=== PATIENT | female | born 1990 | race Caucasian/White ===

== ENCOUNTER 2018-01-23 15:41 | Inpatient (IN) | payer OTHER ==
[~2018-01-23] VITALS: Ht 162.6 cm; Wt 128.8 kg
[2018-01-23] MEDS ORDERED: ONDANSETRON HCL INJ 2 MG/ML VIAL IV STA (16:17)
[2018-01-23] MEDS ORDERED: HYDROMORPHONE 1MG/1ML INJ IV STA (16:17)
[2018-01-23] MEDS ORDERED: MORPHINE SULFATE 2 MG/ML SYR IV STA (16:25)
[2018-01-23] MEDS ORDERED: SODIUM CHLORIDE 0.9% 1000ML 1,000 ML IV ONE (16:30)
[2018-01-23] MEDS ORDERED: MORPHINE SULFATE INJ 4 MG/ML INJ IV STA (17:38)
--- NOTE | 2018-01-23 17:38 | Diagnostic Imaging Report ---
EXAMINATION: CT of the abdomen and pelvis with contrast. TECHNIQUE: Spiral CT images of the abdomen and pelvis were performed from the lung bases to the lesser trochanters after the intravenous administration of 100 cc of Isovue 370 and the oral administration of water. Coronal and sagittal reformatted images were obtained. COMPARISON: None. CLINICAL HISTORY:Gallbladder pain, vomiting, right upper quadrant pain for one week DISCUSSION: ABDOMEN/PELVIS: Exam limited by photon starvation from patient's body habitus. LOWER THORAX:Unremarkable. HEPATOBILIARY: No focal hepatic lesions. No intra or extrahepatic biliary ductal dilation. GALLBLADDER: Partially calcified 2.9 cm stone in the gallbladder lumen. No wall thickening or pericholecystic fluid. SPLEEN: No splenomegaly. PANCREAS: No focal masses or ductal dilatation. ADRENALS: No adrenal nodules. KIDNEYS/URETERS: No hydronephrosis, stones, or solid mass lesions. PELVIC ORGANS/BLADDER: Bladder is unremarkable. Uterus is unremarkable. No adnexal masses. PERITONEUM/RETROPERITONEUM: No free air or fluid. LYMPH NODES: No intra-abdominal, retroperitoneal, pelvic or inguinal lymphadenopathy. VESSELS: The celiac trunk,superior and inferior mesenteric and bilateral renal arteries are patent The portal, superior mesenteric and splenic veins are patent. GI TRACT: No bowel dilation or evidence of obstruction. Appendix is well identified and normal in caliber. No pericolonic inflammatory changes. BONES AND SOFT TISSUE: No aggressive lytic lesions. Soft tissues are grossly unremarkable. IMPRESSION: 1. Cholelithiasis, without CT evidence of cholecystitis. 2. Otherwise, unremarkable exam. Signed by: Dr. Rainer Dunbar M.D. on 01/23/2018 5:34 PM
[2018-01-23] MEDS ORDERED: CEFOXITIN SOD 1 GM VIAL ONE (17:41)
[2018-01-23] MEDS ORDERED: LORAZEPAM INJ 2 MG/ML VIAL IV STA (17:43)
[2018-01-23] MEDS ORDERED: LABETALOL HCL 5 MG/ML 20ML VIAL IV STA ×3 (18:13→18:59)
[2018-01-23] MEDS ORDERED: HYDROMORPHONE 1MG/1ML INJ IV PRN (18:15)
[2018-01-23] MEDS: D5.45%NS/KCL 20MEQ 1,000 ML IV SCH (18:23)
[2018-01-23] MEDS: LEVOFLOXACIN 500MG/D5W 100ML IV SCH (18:59)
--- OUTSIDE RECORDS SUMMARY | 2018-01-23 19:01 | XMS REPORT ---
Author [facility] Address Unknown Phone Unavailable Care Team Providers Care Inspector Casing Name Role Phone FELICIA WELLER Unavailable Unavailable Problems This patient has no known problems. Allergies, Adverse Reactions, Alerts This patient has no known allergies or adverse reactions. Medications This patient has no known medications. Results Test Description Test Time Test Comments Text Results Atomic Results Result Comments CT ABD/PEL WITH CONTRAST-HOPD 2018-01-23 17:30:00 [place] [id number] Patient Name: RAJANI CHAVES MR #: [id number] : 1990 Age/Sex: 27/F Req #: [id number] Adm Physician: Ordered by: FELICIA WELLER MD Report #: [id number] Location: [facility] Room/Bed: Procedure: [id number] HOPD/CT ABD/PEL WITH CONTRAST-HOPD Exam Date: 01/23/18 Exam Time: 1714 REPORT STATUS: Signed EXAMINATION: CT of the abdomen and pelvis with contrast. TECHNIQUE: Spiral CT images of the abdomen and pelvis were performed from the lung bases to the lesser trochanters after the intravenous administration of 100 cc of Isovue 370 and the oral administration of water. Coronal and sagittal reformatted images were obtained. COMPARISON: None. CLINICAL HISTORY:Gallbladder pain, vomiting, right upper quadrant pain for one week DISCUSSION: ABDOMEN/PELVIS: Exam limited by photon starvation from patient's body habitus. LOWER THORAX:Unremarkable. HEPATOBILIARY: No focal hepatic lesions. No intra or extrahepatic biliary ductal dilation. GALLBLADDER: Partially calcified 2.9 cm stone in the gallbladder lumen. No wall thickening or pericholecystic fluid. SPLEEN: No splenomegaly. PANCREAS: No focal masses or ductal dilatation. ADRENALS: No adrenal nodules. KIDNEYS/URETERS: No hydronephrosis, stones, or solid mass lesions. PELVIC ORGANS/BLADDER: Bladder is unremarkable. Uterus is unremarkable. No adnexal masses. PERITONEUM/RETROPERITONEUM: No free air or fluid. LYMPH NODES: No intra- abdominal, retroperitoneal, pelvic or inguinal lymphadenopathy. VESSELS: The celiac trunk,superior and inferior mesenteric and bilateral renal arteries are patent The portal, superior mesenteric and splenic veins are patent. GI TRACT: No bowel dilation or evidence of obstruction. Appendix is well identified and normal in caliber. No pericolonic inflammatory changes. BONES AND SOFT TISSUE: No aggressive lytic lesions. Soft tissues are grossly unremarkable. IMPRESSION: 1. Cholelithiasis, without CT evidence of cholecystitis. 2. Otherwise, unremarkable exam. Signed by: Dr. Ben Dunbar M.D. on 01/23/2018 5:34 PM Dictated By: BEN DUNBAR MD 1730 Transcribed By: KWAN on 01/23/181733 COPY TO: FELICIA WELLER MD
[2018-01-23 20:00] VITALS: BP 171/93
[2018-01-23 21:00] VITALS: BP 171/93
[2018-01-23] MEDS: ONDANSETRON HCL INJ 2 MG/ML VIAL IV PRN (22:52)
[2018-01-23] MEDS: HYDROMORPHONE 2MG/ML 2 MG/ML ML IV PRN (22:52)
[2018-01-24] VITALS (7 sets, daily range): BP systolic 148–169; BP diastolic 77–102
[2018-01-24] MEDS: D5.45%NS/KCL 20MEQ 1,000 ML IV SCH ×2 (02:05→10:14)
[2018-01-24 05:34] LABS: BASOPHILS % 0.3 % (0.0-1.0); EOSINOPHILS % 0.3 % (0.0-6.0); HEMATOCRIT 38.5 % (34.2-44.1); LYMPHOCYTES # (AUTO) 1.6 (1.0-3.2); LYMPHOCYTES % 13.3 % (18.0-39.1); MEAN CORPUSCULAR HEMOGLOBIN 28.7 pg (28-32); MEAN CORPUSCULAR HGB CONC 33.8 g/dL (31-35); MONOCYTES # (AUTO) 0.6 (0.2-0.8); MONOCYTES % 5.4 % (4.4-11.3); NEUTROPHILS # (AUTO) 9.3 (2.1-6.9); NEUTROPHILS % 80.3 % (38.7-80.0); PLATELET COUNT 268 x10e3/uL (140-360); RED BLOOD COUNT 4.53 x10e6/uL (3.6-5.1); RED CELL DISTRIBUTION WIDTH 12.7 % (11.7-14.4)
[2018-01-24] MEDS: METRONIDAZOLE 500MG/NS 100ML IV SCH ×4 (05:52→17:03)
[2018-01-24 05:57] LABS: ALANINE AMINOTRANSFERASE 16 IU/L (0-55); ALBUMIN 3.3 g/dL (3.5-5.0); ALBUMIN/GLOBULIN RATIO 1.2 (0.8-2.0); ALKALINE PHOSPHATASE 53 IU/L (40-150); AMYLASE 31 U/L (25-125); ANION GAP 12.2 mmol/L (8-16); BLOOD UREA NITROGEN 8 mg/dL (7-26); BUN/CREATININE RATIO 15 (6-25); CALCIUM 8.8 mg/dL (8.4-10.2); CARBON DIOXIDE 23 mmol/L (22-29); CHLORIDE 109 mmol/L (98-107); CREATININE, SERUM 0.55 mg/dL (0.57-1.11); EST GLOMERULAR FILTRATION RATE > 60 ML/MIN (60-); GLUCOSE 102 mg/dL (74-118); LIPASE 12 U/L (8-78); POTASSIUM 4.2 mmol/L (3.5-5.1); SODIUM 140 mmol/L (136-145)
[2018-01-24] MEDS: HYDROMORPHONE 2MG/ML 2 MG/ML ML IV PRN ×3 (06:00→15:00)
[2018-01-24] MEDS: ONDANSETRON HCL INJ 2 MG/ML VIAL IV PRN (06:00)
[2018-01-24] MEDS ORDERED: LABETALOL HCL 5 MG/ML 20ML VIAL IV PRN (07:30)
[2018-01-24] MEDS ORDERED: PROMETHAZINE 25MG/ NS 50ML (IV) IV ONE (07:45)
[2018-01-24] MEDS ORDERED: ONDANSETRON HCL INJ 2 MG/ML VIAL IV PRN (07:45)
--- NOTE | 2018-01-24 08:25 | History and Physical ---
PRIMARY CARE PROVIDER: Dr. Chrystal Ellis. HISTORY OF PRESENT ILLNESS: The patient is a 27-year-old woman. She reports intermittent right upper quadrant pain for the past week. Yesterday, became steady and unrelenting. She went to the emergency department. A CT scan showed cholelithiasis and physical exam showed right upper quadrant tenderness. She was subsequently admitted for cholecystitis. That patient reports continued pain despite receiving some Dilaudid. She has vomiting despite receiving Zofran and IV fluids. PAST MEDICAL HISTORY: None. PAST SURGICAL HISTORY: None. FAMILY HISTORY: Noncontributory. SOCIAL HISTORY: The patient is not an active smoker or drinker. REVIEW OF SYSTEMS: The patient denies fever. There is no headache. She is not having any neck pain. She has no sore throat. PHYSICAL EXAMINATION CARDIOVASCULAR: Regular rate and rhythm with a normal S1 and S2. LUNGS: Auscultation of lungs reveals clear breath sounds bilaterally. There is no wheezing. ABDOMEN: Tender in the right upper quadrant. There is no rebound. EXTREMITIES: No leg edema or calf tenderness. NEUROLOGIC: No focal abnormalities. IMPRESSION 1. Acute cholecystitis. 2. Hypertension. PLAN 1. Patient will continue to receive IV fluids. 2. NPO in anticipation of a cholecystectomy. 3. Pain control and antiemetics. 4. Labetalol as needed now for hypertension. 5. Arrange for antihypertensive regimen on discharge. 6. Awaiting surgical consultation. Job#: [id number] EAMON
[2018-01-24] MEDS ORDERED: BUPIVACAINE 0.25%/EPI 30ML SDV INJ ONE (10:31)
[2018-01-24] MEDS ORDERED: FENTANYL CITRATE/PF 100MCG/2 ML INJ ONE (14:08)
[2018-01-24] MEDS: LEVOFLOXACIN 500MG/D5W 100ML IV SCH (18:14)
[2018-01-24] MEDS: HYDROCODONE/APAP 7.5MG-325MG 1 EA TAB PO PRN (19:05)
[2018-01-24] MEDS ORDERED: ACETAMINOPHEN 325 MG TAB PO PRN (19:45)
--- NOTE | 2018-01-24 20:10 | Consultation ---
DATE OF CONSULTATION: January 24, 2018 CHIEF COMPLAINT: Abdominal pain. HISTORY OF PRESENT ILLNESS: This patient is a 27-year-old female with a 1-week history of pain in right upper quadrant with nausea and vomiting. Patient was noted to be hypertensive in the emergency room setting. PAST MEDICAL HISTORY: Unremarkable. PAST SURGICAL HISTORY: No previous surgery. ALLERGIES: SHE HAS NO DRUGS ALLERGY. SOCIAL HABITS: No smoking or alcohol abuse. REVIEW OF SYSTEMS: No chest pain. No shortness of breath. No cough. PHYSICAL EXAMINATION VITALS: Stable, afebrile. GENERAL: Patient is awake, alert, in moderate discomfort. HEENT: Sclerae nonicteric. NECK: Supple. LUNGS: Clear. HEART: Regular rate and rhythm. ABDOMEN: Soft with some guarding tenderness in right upper quadrant. EXTREMITIES: Without cyanosis or edema. LABORATORY DATA: Patient's white cell count is 12, hemoglobin of 13. Liver function tests within normal limits with creatinine of 0.5. CT scan showed large stone in gallbladder. ASSESSMENT: Cholelithiasis and probable cholecystitis. PLAN: Laparoscopic cholecystectomy. Attendant risks discussed. Job#: [id number] ROSS
[2018-01-25] VITALS: BP 142/87
[2018-01-25] MEDS: METRONIDAZOLE 500MG/NS 100ML IV SCH ×2 (00:07→06:28)
--- NOTE | 2018-01-25 00:09 | Operative Report ---
DATE OF PROCEDURE: January 24, 2018 PREOPERATIVE DIAGNOSES: Cholelithiasis and cholecystitis. POSTOPERATIVE DIAGNOSIS: Cholelithiasis and cholecystitis. OPERATIVE PROCEDURE: Laparoscopic cholecystectomy. JAVA SUPPORT ENGINEER: None. ANESTHESIA: General endotracheal, Dr. Vance. INDICATIONS: The patient is a 27-year-old female with 1-week history of abdominal pain and ultrasound showed gallstones in the neck of gallbladder. Patient consented for laparoscopic cholecystectomy. Attendant risks discussed. PROCEDURE FINDINGS: Hydrops gallbladder with large stone at the neck of the gallbladder. DESCRIPTION OF PROCEDURE: The patient was brought to the OR intubated. Abdomen prepped with alcohol and draped in sterile fashion. An infraumbilical incision is made and a 10-mm port inserted. Insufflation then begun. Under direct vision, other port site placed in the mid-epigastric and right upper quadrant. Gallbladder distended, is decompressed first with a needle revealing hydrops of the gallbladder. We then proceeded to retract the fundus in a cephalad direction of the neck of the gallbladder laterally. Blunt and sharp dissection is carried out to isolate the cystic artery, which was then triply clipped and divided. The cystic duct also isolated and its junction with common bile duct is noted before triple clipping the cystic duct and divided between clips. Gallbladder then detached from the liver with cautery and taken out through umbilical incision with the Endopouch. Operative field was then irrigated. Hemostasis achieved. A 19-Yoruba Juan Carlos drain placed in the Benavidez pouch and taken out through right upper quadrant port site. All ports removed under direct vision. Fascial closure with 0 Vicryl. Skin closed with subcuticular stitch. Patient was extubated and transported to the recovery room. Estimated blood loss 10 mL. Job#: [id number] EAMON
[2018-01-25] MEDS: D5.45%NS/KCL 20MEQ 1,000 ML IV SCH ×3 (00:13→09:32)
[2018-01-25] MEDS: HYDROCODONE/APAP 7.5MG-325MG 1 EA TAB PO PRN ×2 (00:23→06:35)
[2018-01-25 02:01] VITALS: BP 142/87
[2018-01-25 04:00] VITALS: BP 142/87
[2018-01-25 06:30] LABS: BASOPHILS % 0.1 % (0.0-1.0); HEMATOCRIT 37.6 % (34.2-44.1); HEMOGLOBIN 12.5 g/dL (12.0-16.0); LYMPHOCYTES # (AUTO) 1.6 (1.0-3.2); LYMPHOCYTES % 10.9 % (18.0-39.1); MEAN CORPUSCULAR HEMOGLOBIN 28.3 pg (28-32); MEAN CORPUSCULAR HGB CONC 33.2 g/dL (31-35); MEAN CORPUSCULAR VOLUME 85.3 fL (81-99); MONOCYTES % 7.1 % (4.4-11.3); NEUTROPHILS # (AUTO) 11.9 (2.1-6.9); NEUTROPHILS % 81.4 % (38.7-80.0); PLATELET COUNT 246 x10e3/uL (140-360); RED BLOOD COUNT 4.41 x10e6/uL (3.6-5.1); RED CELL DISTRIBUTION WIDTH 12.7 % (11.7-14.4)
[2018-01-25 06:50] LABS: ALANINE AMINOTRANSFERASE 20 IU/L (0-55); ALBUMIN 3.2 g/dL (3.5-5.0); ALBUMIN/GLOBULIN RATIO 1.1 (0.8-2.0); ALKALINE PHOSPHATASE 50 IU/L (40-150); ANION GAP 12.3 mmol/L (8-16); BLOOD UREA NITROGEN 6 mg/dL (7-26); BUN/CREATININE RATIO 10 (6-25); CARBON DIOXIDE 25 mmol/L (22-29); CHLORIDE 107 mmol/L (98-107); EST GLOMERULAR FILTRATION RATE > 60 ML/MIN (60-); GLUCOSE 108 mg/dL (74-118); POTASSIUM 4.3 mmol/L (3.5-5.1); SODIUM 140 mmol/L (136-145)
[2018-01-25 07:52] VITALS: BP 167/102
[2018-01-25] MEDS ORDERED: LOSARTAN POTAS100 MG PO (11:39)
[2018-01-25] MEDS ORDERED: TYLENOL WITH C1 EACH PO (11:40)
[2018-01-25] MEDS ORDERED: DEXAMETHASONE SOD PHOS INJ 4 MG/ML VIAL IV ONE (13:18)
[2018-01-25] MEDS ORDERED: GLYCOPYRROLATE INJ 1MG/ 5 ML SYR IV ONE (13:18)
[2018-01-25] MEDS ORDERED: LIDOCAINE HCL 2% LOCAL INJ 5 ML SDV VIAL INJ ONE (13:18)
[2018-01-25] MEDS ORDERED: ACETAMINOPHEN 1000 MG/100 ML IV ONE (13:18)
[2018-01-25] MEDS ORDERED: NEOSTIGMINE 5 MG/5ML SYR IV ONE (13:18)
[2018-01-25] MEDS ORDERED: PROPOFOL IV EMULSION 10 MG/ML 20 ML VIAL IV ONE (13:18)
[2018-01-25] MEDS ORDERED: ONDANSETRON HCL INJ 2 MG/ML VIAL IV ONE (13:18)
[2018-01-25] MEDS ORDERED: SEVOFLURANE INHAL SOLN 250 ML PEN BTL INH ONE (13:18)
[2018-01-25] MEDS ORDERED: ROCURONIUM BROMIDE 10 MG/ML 5ML VIAL IV ONE (13:18)
[2018-01-25] MEDS ORDERED: FENTANYL CITRATE/PF 100MCG/2 ML INJ IV ONE (13:18)
[2018-01-25] MEDS ORDERED: MIDAZOLAM HCL 2 MG/2 ML VIAL INJ ONE (13:18)
[2018-01-25] MEDS ORDERED: SUCCINYLCHOLINE 200 MG/10 ML SYR IV ONE (13:18)
--- NOTE | 2018-01-25 23:35 | Discharge Summary ---
DISCHARGE DIAGNOSES: 1. Acute cholecystitis. 2. Hypertension. RADIOGRAPHIC STUDIES: CT scan of the abdomen and pelvis showing cholelithiasis. PROCEDURES: Laparoscopic cholecystectomy performed by Dr. Gilliam. DISCHARGE MEDICATIONS: 1. Losartan 100 mg p.o. daily. 2. Tylenol No. 3 one p.o. q.6. p.r.n. as needed for pain. HISTORY OF PRESENT ILLNESS: The patient is a 27-year-old woman. She came into the freestanding emergency department complaining of right upper quadrant pain. It was intermittent for a week, but then became steady and unrelenting. HOSPITAL COURSE: The patient was admitted. Her CT scan confirmed cholelithiasis as did her physical examination. She received IV antibiotics along with IV fluids and antiemetics. The patient was seen by general surgery. She underwent a laparoscopic cholecystectomy and tolerated the procedure well. Her blood pressure was elevated and required some p.r.n. medications. At the time of discharge, she was started on losartan. DISPOSITION: The patient will be discharged home and will follow up with Dr. Gilliam as well as Dr. Ellis. AFSHAN WEISS MD Job#: [id number] cc:DENISHA ELLIS DO
== END 2018-01-25 13:19 | disposition home or self-care (01) | DRG 418 ==
LOC: FSED 15:41 → ERHOLD 18:31 → MED/SURG3 20:05
PROVIDERS: ADMIT Internal Medicine Critical Care Medicine; ATTEND Internal Medicine Critical Care Medicine
PROC: 0FT44ZZ Resection of Gallbladder, Percutaneous Endoscopic Approach (ICD-10-PCS; principal; 2018-01-23)
DX: K80.00 Calculus of gallbladder with acute cholecystitis without obstruction (principal); Z68.42 Body mass index [BMI] 45.0-49.9, adult; E66.9 Obesity, unspecified; F41.9 Anxiety disorder, unspecified; F32.9 Major depressive disorder, single episode, unspecified; I10 Essential (primary) hypertension
CPT/HCPCS: 36415; 74177; 80048; 80053; 80076; 80307; 81003; 81025; 82150; 83690; 85025; 88304; 93005; 96361; 99284; J0694; J1100; J1170; J1956; J2001; J2060; J2250; J2270; J2405; J2550; J7030